=== PATIENT | female | born 2000 | race Caucasian/White ===

== ENCOUNTER 2022-01-01 19:16 | Emergency (ER) | payer BC ==
[~2022-01-01] VITALS: Ht 167.6 cm; Wt 122.7 kg
[2022-01-01 19:26] VITALS: BP 160/98; TEMP 97.9
[2022-01-01] MEDS ORDERED: ZOFRAN ODT4 MG PO (21:55)
[2022-01-01 22:02] VITALS: PULSE 73
== END 2022-01-01 22:10 | disposition home or self-care (01) ==
LOC: EDSEX 19:16 → COL.ER 19:16
DX: U07.1 COVID-19 (principal); Z28.310 Unvaccinated for COVID-19